=== PATIENT | female | born 1960 | race African-American/Black ===

== ENCOUNTER 2024-09-25 14:40 | Emergency (ER) | payer MEDICARE, OTHER, SELFPAY ==
[2024-09-25] VITALS (13 sets, daily range): BP systolic 126–191; BP diastolic 60–91; PULSE 54–68; RESP 17–24; TEMP 36.4; O2SAT 98–100; BMI 34.9
--- NOTE | 2024-09-25 15:09 | DI.RAD.S_ITS ---
PROCEDURE: XR CHEST 1V INDICATIONS: chest pain TECHNIQUE: One view of the chest was acquired. COMPARISON: None. FINDINGS: Surgical changes and devices: None. Lungs and pleura: An incomplete inspiratory result is noted, causing a crowded appearance to the lung markings. No focal infiltrates are seen. No pneumothorax or significant pleural effusions are seen. Mediastinum: Mediastinal contours appear normal. Heart size is normal. Bones and chest wall: No suspicious bony lesions. Age-appropriate bony degenerative changes are seen. Overlying soft tissues appear unremarkable. IMPRESSION: Limited portable chest examination, without a significant cardiopulmonary abnormality identified. Dictated by: Ellis Davis M.D. on 09/25/2024 at 14:36 Approved by: Ellis Davis M.D. on 09/25/2024 at 14:36
--- NOTE | 2024-09-25 15:14 | EKG_ITS ---
[place] [id number] [place] [id number] Test Date: 2024-09-25 Pat Name: Sameera Hammond Department: Room: Gender: Female Director Case Management: FANNY : 1960 Requested By: Order Number: [id number] Reading MD: Low Juan Measurements Intervals [place] Rate: 58 P: 50 [place]: 132 QRS: 14 QRSD: 74 T: 9 QT: 414 QTc: 406 Interpretive Statements Sinus bradycardia Minimal voltage criteria for LVH, may be normal variant ( R in aVL ) Electronically Signed On 09-26-2024 7:25:00 PST by Low Juan
[2024-09-25 15:30] LABS: Add Manual Diff / Slide Review NO; Basophils Absolute Auto 100 /uL (0-100); Basophils Percent Auto 0.9 % (0-2); Eosinophils Absolute Auto 200 /uL (0-450); Eosinophils Percent Auto 2.6 % (2-4); Hematocrit 42.4 % (36-46); Hemoglobin 13.7 g/dL (12.0-16.0); Lymphocytes Absolute Auto 2600 /uL (1100-4500); Lymphocytes Percent Auto 44.5 % (25-40); Mean Corpuscular HGB Conc 32.3 % (30-36); Mean Corpuscular Hemoglobin 27.2 PG (26-34); Mean Corpuscular Volume 84.1 fL (80-100); Monocytes Absolute Auto 500 /uL (0-900); Monocytes Percent Auto 8.8 % (3-14); Neutrophils Absolute Auto 2500 /uL (1500-7000); Neutrophils Percent Auto 43.2 % (50-75); Platelet Count 182 X10^3/uL (150-400); Red Blood Cell Count 5.04 X10^6/uL (4.0-5.2); Red Cell Distribution Width 13.7 % (11.6-14.8); White Blood Cell Count 5.9 X10^3/uL (4.5-11.0)
[2024-09-25 15:39] LABS: INR 1.1 (0.9-1.3); Prothrombin Time 12.4 SECONDS (9.4-12.5)
[2024-09-25 15:41] LABS: PTT Partial Thromboplastin Tim 32 SECONDS (25.1-36.5)
[2024-09-25 15:42] LABS: Alanine Aminotransferase 37 IU/L (<35); Albumin 4.3 g/dL (3.5-5.0); Albumin Globulin Ratio 1.3 (1.0-2.8); Alkaline Phosphatase 108 U/L (38-126); Aspartate Aminotransferase 45 IU/L (14-36); Bilirubin Total 0.5 mg/dL (0.2-1.3); Blood Urea Nitrogen 13 mg/dL (7-17); Calcium 9.4 mg/dL (8.4-10.2); Carbon Dioxide 25 mmol/L (22-32); Chloride 107 mmol/L (98-107); Creatine Kinase 56 U/L (30-135); Estimated Glomerular Filt Rate > 60 mL/min (>60); Globulin 3.2 g/dL (1.7-4.1); Glucose 105 mg/dL (80-110); HEMOLYSIS < 15 (0-50); Lipase 178 U/L (23-300); Magnesium 1.9 mg/dL (1.6-2.3); Potassium 3.9 mmol/L (3.4-5.1); Sodium 140 mmol/L (137-145); Total Protein 7.5 g/dL (6.3-8.2)
[2024-09-25] MEDS: ASPIRIN 81 MG CHEW TAB 324 MG PO (15:51)
[2024-09-25 15:53] LABS: NT-proBNP (BNP-Adult 18+) < 20 pg/mL (<125); Troponin I < 0.012 ng/mL (0.01-0.034)
--- NOTE | 2024-09-25 19:33 | ED.GENADULT ---
HPI - General Adult General Chief complaint: Hypertension Stated complaint: high bp, shoulders/rtsidehead hurting Time Seen by Provider: 09/25/24 19:32 Source: patient Mode of arrival: Ambulatory History of Present Illness HPI narrative: 64-year-old female past medical history of hypertension, hyperlipidemia, diabetes presents to the ED from home for evaluation of high blood pressure. She states that over the past several months she is noticed that her BP has been over 140, states that today she felt pressure to her neck felt a right-sided headache but denies any actual visual disturbances states that at that time strict her blood pressure was elevated therefore decided come into the ED for further evaluation treatment. Initial blood pressure systolically in the 190s however improved without any intervention here in the emergency department. Patient denies any actual chest pain shortness breath fever chills nausea vomiting abdominal pain or any other GI/ symptoms time. She denies any other symptoms, not on any blood thinners no trauma no falls. At time of initial evaluation NIH of 0 no focal deficits. Related Data Allergies Allergy/AdvReac Type Severity Reaction Status Date / Time amoxicillin AdvReac Agitated Verified 09/25/24 15:03 influenza virus vaccine ts AdvReac I got the Verified 09/25/24 15:04 [id number] (36 mos,up) flu [From Fluarix] Review of Systems Review of Systems Narrative: General: Denies fever, chills, weight loss HEENT: Positive headache, denies eye drainage, eye irritation, head trauma, sore throat, voice change Cardiovascular: Positive high blood pressure, Denies any chest pain, palpitations, shortness of breath, tachycardia Respiratory: Denies any shortness of breath, cough, wheeze, stridor GI/: Denies any abdominal pain, nausea, vomiting, diarrhea, bright red blood per rectum, melanotic stools, urinary frequency, urinary retention, dysuria, hematuria MSK: Denies any joint pain, muscle pains, swelling Skin: Denies any rashes, lesions, discoloration Neuro: Denies any headache, lightheadedness, dizziness, fainting, weakness Psych: Denies SI/HI Patient History Social History Smoking Status: Never smoker Smoking Status: Never smoker Exam Narrative Exam Narrative: General: Cooperative, comfortable, well-developed, not in acute distress HEENT: Normocephalic, atraumatic, PERRLA, normal sclera, eyelids normal, Neck: Active full range of motion, atraumatic Chest: Normal to inspection, negative crepitus, no overlying erythema ecchymosis Respiratory: Normal respiratory effort, not in acute respiratory distress, clear to auscultation bilaterally negative cough, wheeze, tachypnea, rhonchi, rales Cardiology: Regular rate rhythm negative gallop, murmur, rubs GI/: Normal to inspection, soft, nonrigid, no tenderness to palpation, exam deferred MSK: Full range of active range of motion of all 4 extremities, atraumatic Skin: No rashes lesions noted Neuro: NIH of 0 no focal deficits noted Alert awake oriented x3, moves all 4 extremities spontaneously, cranial nerves intact, able to answer all questions appropriately follows commands appropriately Psych: Cooperative, negative suicidal or homicidal ideations Initial Vital Signs Initial Vital Signs: Vital Signs Temperature 97.5 F L 09/25/24 15:04 Pulse Rate 68 09/25/24 15:04 Respiratory Rate 18 09/25/24 15:04 Blood Pressure 191/83 H 09/25/24 15:04 Pulse Oximetry 99 09/25/24 15:04 Oxygen Delivery Method Room Air 09/25/24 15:04 Course Orders Ordered: ED Orders 09/25/24 15:09 XR chest 1V Stat EKG-12 Lead Stat 09/25/24 15:24 Complete Blood Count AUTO DIFF Stat Comprehensive Metabolic Panel Stat Lipase Stat Magnesium Stat NT-proBNP (BNP-Adult 18+) Stat PTT Partial Thromboplastin Ben Stat Prothrombin Time INR Stat Troponin & CK Cardiac Panel Stat Discontinued Medications Aspirin (Aspirin 81 Mg Chew Tab) 324 mg PO NOW ONE Stop: 09/25/24 15:10 Last Admin: 09/25/24 15:51 Dose: 243 mg Documented By: SHALINI Vital Signs Vital signs: Vital Signs - 8 hr 09/25/24 15:04 09/25/24 16:49 09/25/24 16:50 Temperature 97.5 F L Pulse Rate 68 60 Respiratory Rate 18 Blood Pressure 191/83 H 143/72 H Pulse Oximetry 99 100 Oxygen Delivery Method Room Air Room Air 09/25/24 16:50 09/25/24 17:00 09/25/24 17:01 Temperature Pulse Rate 60 60 Respiratory Rate Blood Pressure 163/91 H Pulse Oximetry 99 98 Oxygen Delivery Method 09/25/24 17:01 09/25/24 17:04 09/25/24 17:04 Temperature Pulse Rate 62 Respiratory Rate Blood Pressure 148/68 H Pulse Oximetry 99 99 Oxygen Delivery Method 09/25/24 17:30 09/25/24 17:30 09/25/24 18:00 Temperature Pulse Rate 54 L 62 Respiratory Rate 18 21 Blood Pressure 141/69 H Pulse Oximetry 100 98 Oxygen Delivery Method Room Air 09/25/24 18:06 09/25/24 18:06 Temperature Pulse Rate 59 L Respiratory Rate 17 Blood Pressure 128/69 Pulse Oximetry 100 Oxygen Delivery Method Room Air Medical Decision Making Differential Diagnosis Differential Diagnosis: Hypertension, KAM, ACS, pneumonia, Lab Data 09/25/24 15:24 09/25/24 15:24 Labs: Lab Results 09/25/24 Range/Units 15:24 WBC 5.9 (4.5-11.0) X10^3/uL RBC 5.04 (4.0-5.2) X10^6/uL Hgb 13.7 (12.0-16.0) g/dL Hct 42.4 (36-46) % MCV 84.1 (80-100) fL MCH 27.2 (26-34) PG MCHC 32.3 (30-36) % RDW 13.7 (11.6-14.8) % Plt Count 182 (150-400) X10^3/uL Neut % (Auto) 43.2 L (50-75) % Lymph % (Auto) 44.5 H (25-40) % [place] % (Auto) 8.8 (3-14) % Eos % (Auto) 2.6 (2-4) % Baso % (Auto) 0.9 (0-2) % Neut # (Auto) 2500 (7526-7344) /uL Lymph # (Auto) 2600 (8800-9079) /uL [place] # (Auto) 500 (0-900) /uL Eos # (Auto) 200 (0-450) /uL Baso # (Auto) 100 (0-100) /uL PT 12.4 (9.4-12.5) SECONDS INR 1.1 (0.9-1.3) APTT 32 (25.1-36.5) SECONDS Sodium 140 (137-145) mmol/L Potassium 3.9 (3.4-5.1) mmol/L Chloride 107 (98-107) mmol/L Carbon Dioxide 25 (22-32) mmol/L BUN 13 (7-17) mg/dL Creatinine 0.62 (0.52-1.04) mg/dL Estimated GFR > 60 (>60) mL/min BUN/Creatinine Ratio 21.0 (6-22) Glucose 105 (80-110) mg/dL Calcium 9.4 (8.4-10.2) mg/dL Magnesium 1.9 (1.6-2.3) mg/dL Total Bilirubin 0.5 (0.2-1.3) mg/dL AST 45 H (14-36) IU/L ALT 37 H (<35) IU/L Alkaline Phosphatase 108 (38-126) U/L Total Creatine Kinase 56 (30-135) U/L Troponin I < 0.012 (0.01-0.034) ng/mL NT-Pro-B Natriuret Pep < 20 (<125) pg/mL Total Protein 7.5 (6.3-8.2) g/dL Albumin 4.3 (3.5-5.0) g/dL Globulin 3.2 (1.7-4.1) g/dL Albumin/Globulin Ratio 1.3 (1.0-2.8) Lipase 178 (23-300) U/L Imaging Data Chest x-ray: Radiologist's Impression: [address] [address] XRay Report Signed Patient: Sameera Hammond MR#: [id number] : 1960 Acct:[id number] Age/Sex: 64 / F Date of Service: 09/25/24 Loc: ED Accession Number: [id number] Procedure: XR chest 1V Ordering Provider: Brock Valenzuela MD PROCEDURE: XR CHEST 1V INDICATIONS: chest pain TECHNIQUE: One view of the chest was acquired. COMPARISON: None. FINDINGS: Surgical changes and devices: None. Lungs and pleura: An incomplete inspiratory result is noted, causing a crowded appearance to the lung markings. No focal infiltrates are seen. No pneumothorax or significant pleural effusions are seen. Mediastinum: Mediastinal contours appear normal. Heart size is normal. Bones and chest wall: No suspicious bony lesions. Age-appropriate bony degenerative changes are seen. Overlying soft tissues appear unremarkable. IMPRESSION: Limited portable chest examination, without a significant cardiopulmonary abnormality identified. ECG Data Interpretation: EKG interpreted by ED physician sinus bradycardia at 58 beats per minute QTC [address] changes no STEMI MDM Narrative Medical decision making narrative: Patient is a 64-year-old female with a history of hypertension hyperlipidemia diabetes comes into the ED from home for evaluation of high blood pressure, she states that she has a history of high blood pressure that has been chronically elevated above systolic of 140 for the past 7 months follow up with her primary care doctor for this, she states that today she started feeling pressure in her neck/right-sided headache decided to check her blood pressure was elevated in the 190s therefore came into the ED. Initial systolic blood pressure of 190 but improved to 1 50s without intervention, patient denies any chest pain, EKG nonischemic troponin negative chest x-ray without any acute cardiopulmonary abnormalities. At time of initial evaluation patient NIH of 0 headache resolved no focal deficits no visual disturbances. I did discuss possible obtainment of CT scan of the head given patient with elevated blood pressure and headache that occurred previously however she states that she feels better and does not want this, she states that she would rather follow up with primary care Cardiology in outpatient setting, she states that this was not the worst headache of her life. Patient was given strict return precautions she verbalized understanding of this and agrees to being discharged home with outpatient follow up Discharge Plan Departure Patient Disposition: Home Clinical Impression: Hypertension Instructions: DI for High Blood Pressure Activity Restrictions/Additional Instructions: Please follow up with Cardiology and primary care Please read the discharge instructions sheet carefully and bring all papers to all doctor follow-up visits, as it may contain information that your doctor may want to see. Disease processes change and evolve, if your symptoms worsen or if you develop any new symptoms that are concerning to you please return for evaluation. Your evaluation today does not show any evidence of any life-threatening/serious illnesses requiring admission to the hospital or surgery. Please follow-up with your doctor for re-evaluation in approximately 1 day. Seek immediate medical attention for any worrisome symptoms. *If you do not have a primary care provider please contact the [facility] Resource line at [phone]. They will ask some questions about your medical history and help get you set up with a doctor in the community. Referrals: Ronald Mehta MD [Physician] - 3-5 days Stand Alone Forms: Patient Portal/API/Survey
== END 2024-09-25 20:06 | disposition home or self-care (01) ==
PROVIDERS: Emergency Medicine; Emergency Provider Student in an Organized Health Care Education/Training Program
DX: I10 Essential (primary) hypertension (principal)
CPT/HCPCS: 36415; 71045; 80053; 82550; 83690; 83735; 83880; 84484; 85025; 85610; 85730; 93005; 99284

== ENCOUNTER 2024-12-01 15:44 | Emergency (ER) | payer MEDICARE, OTHER, SELFPAY ==
[2024-12-01 15:52] VITALS: BP 183/72; PULSE 81; RESP 17; TEMP 36.6; O2SAT 99; BMI 34.6
--- NOTE | 2024-12-01 15:58 | DI.RAD.S_ITS ---
PROCEDURE: XR CHEST 1V INDICATIONS: hypertension TECHNIQUE: One view of the chest was acquired. COMPARISON: [facility], CR, XR CHEST 1V, 09/25/2024, 15:12. FINDINGS: Surgical changes and devices: None. Lungs and pleura: Lungs are clear. No pleural effusions or pneumothorax. Mediastinum: Mediastinal contours appear normal. Heart size is normal. Bones and chest wall: No suspicious bony lesions. Overlying soft tissues appear unremarkable. IMPRESSION: No acute pulmonary process. Dictated by: Sandra Barnes M.D. on 12/01/2024 at 16:34 Approved by: Sandra Barnes M.D. on 12/01/2024 at 16:34
--- NOTE | 2024-12-01 16:00 | EKG_ITS ---
[address] [address] Test Date: 2024-12-01 Pat Name: Sameera Hammond Department: Room: Gender: Female Set Up Inspector: SATYA : 1960 Requested By: Order Number: [id number] Reading MD: Low Juan Measurements Intervals [place] Rate: 63 P: 30 [place]: 134 QRS: 8 QRSD: 70 T: 3 QT: 400 QTc: 409 Interpretive Statements Normal sinus rhythm Minimal voltage criteria for LVH, may be normal variant ( R in aVL ) Electronically Signed On 12-02-2024 16:03:32 PDT by Low Juan
[2024-12-01 16:18] LABS: Add Manual Diff / Slide Review NO; Basophils Absolute Auto 0 /uL (0-100); Basophils Percent Auto 0.6 % (0-2); Eosinophils Absolute Auto 100 /uL (0-450); Hematocrit 42.7 % (36-46); Hemoglobin 13.8 g/dL (12.0-16.0); Lymphocytes Absolute Auto 2100 /uL (1100-4500); Lymphocytes Percent Auto 32.8 % (25-40); Mean Corpuscular HGB Conc 32.4 % (30-36); Mean Corpuscular Hemoglobin 27.1 PG (26-34); Mean Corpuscular Volume 83.7 fL (80-100); Monocytes Absolute Auto 400 /uL (0-900); Neutrophils Absolute Auto 3600 /uL (1500-7000); Neutrophils Percent Auto 57.6 % (50-75); Platelet Count 229 X10^3/uL (150-400); Red Cell Distribution Width 14.2 % (11.6-14.8); White Blood Cell Count 6.3 X10^3/uL (4.5-11.0)
[2024-12-01 16:20] LABS: INR 1.1 (0.9-1.3); Prothrombin Time 12.6 SECONDS (9.4-12.5)
[2024-12-01 16:26] LABS: Albumin 4.5 g/dL (3.5-5.0); Alkaline Phosphatase 111 U/L (38-126); BUN Creatinine Ratio 14.5 (6-22); Bilirubin Total 0.7 mg/dL (0.2-1.3); Blood Urea Nitrogen 10 mg/dL (7-17); Calcium 9.6 mg/dL (8.4-10.2); Carbon Dioxide 27 mmol/L (22-32); Chloride 105 mmol/L (98-107); Creatine Kinase 65 U/L (30-135); Estimated Glomerular Filt Rate > 60 mL/min (>60); Glucose 96 mg/dL (70-99); Potassium 3.7 mmol/L (3.4-5.1); Sodium 139 mmol/L (137-145)
[2024-12-01 16:27] LABS: Alanine Aminotransferase 37 IU/L (<35); Aspartate Aminotransferase 44 IU/L (14-36); HEMOLYSIS < 15 (0-50); Total Protein 8.1 g/dL (6.3-8.2)
[2024-12-01 16:38] LABS: Troponin I < 0.012 ng/mL (0.01-0.034)
[2024-12-01 17:52] LABS: Albumin Globulin Ratio 1.3 (1.0-2.8); Globulin 3.6 g/dL (1.7-4.1)
--- NOTE | 2024-12-03 19:33 | ED.GENADULT ---
HPI - General Adult General Chief complaint: Hypertension Stated complaint: Blood Pressure Concern Related Data Home Medications Medication Instructions Recorded Confirmed hydrochlorothiazide 12.5 mg capsule 12.5 mg PO DAILY 12/01/24 12/01/24 Allergies Allergy/AdvReac Type Severity Reaction Status Date / Time amoxicillin AdvReac Agitated Verified 12/01/24 15:56 influenza virus vaccine ts AdvReac I got the Verified 12/01/24 15:56 [id number] (36 mos,up) flu [From Fluarix] Patient History Social History Smoking Status: Never smoker Smoking Status: Never smoker Exam Initial Vital Signs Initial Vital Signs: Vital Signs Temperature 98 F 12/01/24 15:52 Pulse Rate 81 12/01/24 15:52 Respiratory Rate 17 12/01/24 15:52 Blood Pressure 183/72 H 12/01/24 15:52 Pulse Oximetry 99 12/01/24 15:52 Oxygen Delivery Method Room Air 12/01/24 15:52 Medical Decision Making Lab Data 12/01/24 16:05 12/01/24 16:05 Labs: Lab Results 12/01/24 Range/Units 16:05 WBC 6.3 (4.5-11.0) X10^3/uL RBC 5.10 (4.0-5.2) X10^6/uL Hgb 13.8 (12.0-16.0) g/dL Hct 42.7 (36-46) % MCV 83.7 (80-100) fL MCH 27.1 (26-34) PG MCHC 32.4 (30-36) % RDW 14.2 (11.6-14.8) % Plt Count 229 (150-400) X10^3/uL Neut % (Auto) 57.6 (50-75) % Lymph % (Auto) 32.8 (25-40) % [place] % (Auto) 7.0 (3-14) % Eos % (Auto) 2.0 (2-4) % Baso % (Auto) 0.6 (0-2) % Neut # (Auto) 3600 (7173-3403) /uL Lymph # (Auto) 2100 (9258-5316) /uL [place] # (Auto) 400 (0-900) /uL Eos # (Auto) 100 (0-450) /uL Baso # (Auto) 0 (0-100) /uL PT 12.6 H (9.4-12.5) SECONDS INR 1.1 (0.9-1.3) Sodium 139 (137-145) mmol/L Potassium 3.7 (3.4-5.1) mmol/L Chloride 105 (98-107) mmol/L Carbon Dioxide 27 (22-32) mmol/L BUN 10 (7-17) mg/dL Creatinine 0.69 (0.52-1.04) mg/dL Estimated GFR > 60 (>60) mL/min BUN/Creatinine Ratio 14.5 (6-22) Glucose 96 (70-99) mg/dL Calcium 9.6 (8.4-10.2) mg/dL Magnesium 2.0 (1.6-2.3) mg/dL Total Bilirubin 0.7 (0.2-1.3) mg/dL AST 44 H (14-36) IU/L ALT 37 H (<35) IU/L Alkaline Phosphatase 111 (38-126) U/L Total Creatine Kinase 65 (30-135) U/L Troponin I < 0.012 (0.01-0.034) ng/mL Total Protein 8.1 (6.3-8.2) g/dL Albumin 4.5 (3.5-5.0) g/dL Globulin 3.6 (1.7-4.1) g/dL Albumin/Globulin Ratio 1.3 (1.0-2.8) Discharge Plan Departure Patient Disposition: Left Without Being Seen Clinical Impression: Patient left without being seen Prescriptions: No Action hydrochlorothiazide 12.5 mg Capsule 12.5 mg PO DAILY
== END 2024-12-01 19:18 | disposition left against medical advice (07) ==
PROVIDERS: Emergency Medicine; Emergency Provider Family Medicine
DX: I10 Essential (primary) hypertension (principal); R51.9 Headache, unspecified
CPT/HCPCS: 36415; 71045; 80053; 82550; 83735; 84484; 85025; 85610; 93005; 99283